=== PATIENT | male | born 2000 | race Hispanic/Latino ===

== ENCOUNTER 2024-02-29 16:00 | Emergency (ER) | payer BC ==
--- OUTSIDE RECORDS SUMMARY | 2024-02-29 16:02 | XMS REPORT | Continuity of Care Document ---
Author Name Unknown Address [address] [place] [address] [facility] thconnect Address [address] [place] [address] Care Team Providers Care Neurosurgical Nurse Practitioner Name Role Phone Pcp, Patient Does Not Have A Primary Care Physic jacky PRICE SCHAFER Attending Clinician Unavailable Doctor Unassigned, [place] Meadows Attending Clinician U Valdez Benz MD Attending Clinician [phone] UNKNOWN, ATTENDING Attending Clinician Unavailab le Unknown, Attending Attending Clinician Unavailab DOREEN Prado Attending Clinician Unavailable Doreen Laureano MD Attending Clinician [phone] MANDEEP COLLIER Attending Clinician Unavailable Mandeep Collier MD Attending Clinician [phone] Maria Kraft Attending Clinician [phone] PRICE SCHAFER Admitting Clinician Unavailable DOREEN LAUREANO Admitting Clinician Unavailable Payers Payer Name Policy Type Policy Number Effective Date Expirati on Date Source [facility] [id number] 2021 00:00:00 Problems Condition Name Condition Details Condition Category Status Onset Date Resolution Date Last Treatment Date Treating Clinician Comments Source Rectal bleeding Rectal bleeding Disease Active 11-17 00:00: 00 [facility] No known active problems No known active problems Disease [facility] Allergies, Adverse Reactions, Alerts Allergy Name Allergy Type Status Severity Reaction(s) Onset Date Inactive Date Treating Clinician Comments Source NO KNOWN ALLERGIE S Drug Class Active [facility] Social History Social Habit Start Date Stop Date Quantity Comments Source Sexual orientation [facility] Exposure to SARS-CoV-2 (event) 2022-06-09 00:00:00 2022-06-19 15:02:00 Not sure [facility] Tobacco use and exposure 2022-03-15 00:00:00 2022-03-15 00:00:00 Smokeless tobacco non-user [facility] History of Social function 2022-03-15 00:00:00 2022-03-15 00:00:00 [facility] Sex Assigned At 2000 00:00:00 2000 00:00:00 [facility] Smoking Status Start Date Stop Date Source Unknown if ever smoked [facility] Never smoked tobacco [facility] Medications Ordered Medication Name Filled Medication Name Start Date Stop Date Current Medication? Ordering Clinician Indication Dosage Frequency Signature (SIG) Comments Components Source peg-electro lyte soln 236-22.74-6 .74 -5.86 gram solution 11-17 00:00: 00 11-18 05:59 :00 No [id number] 4000mL Take 4,000 mL by mouth once now for 1 dose. [facility] iopamidol (ISOVUE 370-500 mL) injection 100 mL 11-09 06:30: 00 11-09 06:30 :00 No [id number] 100mL 100 mL, Intravenou s, ONCE, 1 dose, On Tue11/09/23 at 0030, Routine [facility] polyethylen e glycol 3350 17 gram powder 06-19 00:00: 00 Yes [id number] 1{packe t} Take 1 Packet by mouth in the morning. [facility] No known medications 03-15 18:44: 03 No [facility] Vital Signs Vital Name Observation Time Observation Value Comments S lexa Systolic blood pressure 2023-11-17 19:57:00 122 mm[Hg] [facility] Diastolic blood pressure 2023-11-17 19:57:00 57 mm[Hg] [facility] Heart rate 2023-11-17 19:57:00 81 /min [facility] Body temperature 2023-11-17 19:57:00 36.44 Corrie [facility] Body height 2023-11-17 19:57:[address] [facility] Body weight 2023-11-17 19:57:[address] [facility] BMI 2023-11-17 19:57:00 26.63 kg/m2 [facility] Oxygen saturation in Arterial blood by Pulse oximetry 2023-11-17 19:57:00 97 /min [facility] Heart rate 2023-11-09 06:21:00 62 /min [facility] Respiratory rate 2023-11-09 06:21:00 18 /min [facility] Oxygen saturation in Arterial blood by Pulse oximetry 2023-11-09 06:21:00 97 /min [facility] Systolic blood pressure 2023-11-09 04:54:00 133 mm[Hg] [facility] Diastolic blood pressure 2023-11-09 04:54:00 70 mm[Hg] [facility] Body temperature 2023-11-09 04:54:00 36.78 Corrie [facility] Body height 2023-11-09 04:54:[address] [facility] Body weight 2023-11-09 04:54:[address] [facility] BMI 2023-11-09 04:54:00 26.31 kg/m2 [facility] Systolic blood pressure 2022-06-19 20:03:00 128 mm[Hg] [facility] Diastolic blood pressure 2022-06-19 20:03:00 78 mm[Hg] [facility] Heart rate 2022-06-19 20:03:00 66 /min [facility] Body temperature 2022-06-19 20:03:00 36.78 Corrie [facility] Respiratory rate 2022-06-19 20:03:00 18 /min [facility] Body height 2022-06-19 20:03:[address] [facility] Body weight 2022-06-19 20:03:[address] [facility] BMI 2022-06-19 20:03:00 25.06 kg/m2 [facility] Oxygen saturation in Arterial blood by Pulse oximetry 2022-06-19 20:03:00 98 /min [facility] Systolic blood pressure 2022-03-15 22:48:00 131 mm[Hg] [facility] Diastolic blood pressure 2022-03-15 22:48:00 70 mm[Hg] [facility] Heart rate 2022-03-15 22:48:00 74 /min [facility] Body temperature 2022-03-15 22:48:00 37.22 Corrie [facility] Respiratory rate 2022-03-15 22:48:00 14 /min [facility] Body height 2022-03-15 22:48:[address] [facility] Body weight 2022-03-15 22:48:[address] [facility] BMI 2022-03-15 22:48:00 24.07 kg/m2 [facility] Oxygen saturation in Arterial blood by Pulse oximetry 2022-03-15 22:48:00 97 /min [facility] Procedures Procedure Date / Time Performed Performing Clinician Source COMP. METABOLIC PANEL (96468) 2023-11-09 05:26:00 Doreen Laureano [facility] CBC WITH DIFF 2023-11-09 05:26:[address] [facility] PROTHROMBIN TIME / INR 2023-11-09 05:26:00 Chase Laureano [facility] ACTIVATED PARTIAL THRMPLAS AJ 2023-11-09 05:26:00 Doreen Laureano [facility] CONSENT/REFUSAL FOR DIAGNOSIS AND TREATMENT 2023-11-09 04:40:23 Doctor Unassigned, [place] Meadows [facility] ASSIGNMENT OF BENEFITS 2022-03-15 22:37:46 Docto r Unassigned, [place] Meadows [facility] Encounters Start Date/Time End Date/Time Encounter Type Admission Type Attending Clinicians Care Facility Care Department Encounter ID Source 2024-01-27 14:07:01 Outpatient R PRICE SCHAFER [facility] [id number] [facility] 2024-01-24 00:00:00 2024-01-24 00:00:00 Patient Secure Msg Doctor Unassigned, Carolina Meadows [facility] [id number] 350.1.13.10 4.2.7.2.686 [id number] [facility] 2023-12-01 00:00:00 2023-12-01 00:00:00 Refill Valdez Zelaya [facility] 1.840.114 350.1.13.10 4.2.7.2.686 [id number] [facility] 2023-11-17 14:30:00 2023-11-17 15:07:42 Outpatient R UNKNOWN, ATTENDING [facility] [id number] [facility] 2023-11-17 14:30:00 2023-11-17 15:07:42 Office Visit Valdez Zelaya Unknown, Attending [facility] 1.840.114 350.1.13.10 4.2.7.2.686 [id number] [facility] 2023-11-08 22:56:00 2023-11-09 00:27:00 Emergency X DOREEN LAUREANO [facility] ERT [id number] [facility] 2023-11-08 22:56:00 2023-11-09 00:27:00 Emergency Doreen Laureano [facility] 1..840.114 350.1.13.10 4.2.7.2.686 [id number] [facility] 2022-06-19 15:00:00 2022-06-19 15:23:39 Outpatient R MANDEEP COLLIER [facility] [id number] [facility] 2022-06-19 15:00:00 2022-06-19 15:23:39 [facility] 1.2.840.114 350.1.13.10 4.2.7.2.686 [id number] [facility] 2022-03-15 19:40:00 2022-03-15 19:40:00 Urgent Care Mandeep Collier Brittany [facility] 1.2.840.114 350.1.13.10 4.2.7.2.686 [id number] [facility] 2022-03-15 19:40:00 2022-03-15 18:19:26 Outpatient R MANDEEP COLLIER [facility] [id number] [facility] 2022-03-15 00:00:00 2022-03-15 00:00:00 Orders Only Doctor Unassigned, [place] Meadows [facility] 1.2.840.114 350.1.13.10 4.2.7.2.686 [id number] [facility] Results Test Description Test Time Test Comments Results Result Co mments Source [facility] / [id number] 06:11:13* Test Item Value Reference Range Interpretation Comme nts PROTIME PATIENT (test code = 5964-2) 12.6 See_Comment [Automated [employer] ge] The system which generated this result transmitted reference range: 12.0 - 14.7 Seconds. The reference range was not used to interpret this result as normal/abnormal. INR (test code = 6301-6) 1.0 Normal INR <1.1; Warfarin Therapeutic range 2.0 to 3.0 or 2.5 to 3.5, depending upon the indications. Lab Interpretation (test code = 37733-6) Normal [facility] (38422)2023-11-09 06:03:35* Test Item Value Reference Range Interpretation Comme nts NA (test code = 8152812831) 138 mmol/L 135-145 K (test code = 9421079178) 3.7 mmol/L 3.5-5.0 CL (test code = 0741367076) 100 mmol/L 98-108 CO2 TOTAL (test code = 2746672516) 29 mmol/L 23-31 AGAP (test code = 0843530360) 9 2-16 BUN (test code = 5108791896) 20 mg/dL 7-23 GLUCOSE (test code = 0332331803) 86 mg/dL 70-110 CREATININE (test code = 2712177446) 0.95 mg/dL 0.60-1.25 TOTAL BILI (test code = 3581219395) 0.6 mg/dL 0.1-1.1 CALCIUM (test code = 1294131850) 9.7 mg/dL 8.6-10.6 T PROTEIN (test code = 3307459556) 8.4 g/dL 6.3-8.2 H ALBUMIN (test code = 2799664322) 4.9 g/dL 3.5-5.0 ALK PHOS (test code = 7226692354) 81 U/L 34-122 ALTv (test code = 1742-6) 76 U/L 5-50 H AST(SGOT) (test code = 0307145062) 54 U/L 13-40 H eGFR (test code = 98203-4) 116.8 mL/min/1.73m2 CKD-EPI eGFR (2020). Assuming creatinine has been stable day-to-day for at least three months, the eGFR indicates Category G1 (>= 90 mL/min/1.73 m2) Lab Interpretation (test code = 36951-9) Abnormal [facility] WITH IPDX3287-10-17 05:41:12* Test Item Value Reference Range Interpretation Comme nts WBC (test code = 6690-2) 7.64 See_Comment [Automated [employer] August] The system which generated this result transmitted reference range: 4.20 - 10.70 10*3/?L. The reference range was not used to interpret this result as normal/abnormal. RBC (test code = 789-8) 5.22 See_Comment [Automated [employer] August] The system which generated this result transmitted reference range: 4.26 - 5.52 10*6/?L. The reference range was not used to interpret this result as normal/abnormal. HGB (test code = 718-7) 15.0 g/dL 12.2-16.4 HCT (test code = 4544-3) 44.4 % 38.4-49.3 MCV (test code = 787-2) 85.1 fL 81.7-95.6 MCH (test code = 785-6) 28.7 pg 26.1-32.7 MCHC (test code = 786-4) 33.8 g/dL 31.2-35.0 RDW-SD (test code = 39041-3) 38.7 fL 38.5-51.6 RDW-CV (test code = 788-0) 12.4 % 12.1-15.4 PLT (test code = 777-3) 233 See_Comment [Automated [employer] ge] The system which generated this result transmitted reference range: 150 - 328 10*3/?L. The reference range was not used to interpret this result as normal/abnormal. MPV (test code = 34990-2) 10.1 fL 9.8-13.0 NRBC/100 WBC (test code = 8636649629) 0.0 See_Comment [Automated me ssage] The system which generated this result transmitted reference range: 0.0 - 10.0 /100 WBCs. The reference range was not used to interpret this result as normal/abnormal. NRBC x10^3 (test code = 2013814324) See_Comment [Automated me ssage] The system which generated this result transmitted reference range: 10*3/?L. The reference range was not used to interpret this result as normal/abnormal. GRAN MAT (NEUT) % (test code = 770-8) 51.9 % IMM GRAN % (test code = 4204796720) 0.30 % LYMPH % (test code = 736-9) 32.5 % MONO % (test code = 5905-5) 10.1 % EOS % (test code = 713-8) 4.7 % BASO % (test code = 706-2) 0.5 % GRAN MAT x10^3(ANC) (test code = 2426219417) 3.97 10*3/uL 1.99-6.95 IMM GRAN x10^3 (test code = 1020285283) 0.00-0.06 LYMPH x10^3 (test code = 731-0) 2.48 10*3/uL 1.09-3.23 MONO x10^3 (test code = 742-7) 0.77 10*3/uL 0.36-1.02 EOS x10^3 (test code = 711-2) 0.36 10*3/uL 0.06-0.53 BASO x10^3 (test code = 704-7) 0.04 10*3/uL 0.01-0.09 [facility] Notes Date/Time Note Provider Source 2023-11-17 14:30:00 S1pZuwTyFLeUGcO6ANvB uhpDMEawFkoMd2 pu8pRQ3QGcGck97e/8iAOWdN1hSzHc1310 -01-18T14:30:00Addended by: VALDEZ ZELAYA MD on: 11/17/2023 09:40 PMModules accepted: Orders 95810-3Svqgukbs NoekjruyEI5192-70-29B51:40:05Adden dum DocumentTXT1.2.840.595401.1.13.104 .2.7.2.667594|[id number] e for patient ernk95070-9HocoUVCZQRDCTISNomzsknw d C-CDA narrative text[address] Sf[id number] 37HAFOEEQUNOPMMLCKHNFKIH6028-47-72 T21:40:051.2.840.802676.1.72.3.15| 1.2.840.841606.1.13.104.2.7.2.7278 [id number] [facility] 2023-11-09 00:22:34 uVbq94Cu9SHv9F/Ij4PM DwdUgvplqawytf lwb1NacoQwwpEdqpiuuVJBSfPdSPJ70904 -11-09T00:22:34 Pt discharged home follow ERP eval and negative findings. Pt given all education and information regarding s/s of worsening condition and specialty follow up importance. Pt verbalized understanding. Alert and ambulatory to pov with mother. 94075-6Kdchfubje department YizjNL3425-40-65F15:23:24[facility] NoteTXT1.2.840.402619.1.13.104.2.7 .2.522142|[id number] for patient tcfp38525-8YbdgADVKVRTSSIUXldrfyef d C-CDA narrative [id number] A Paul RN[address] SyudLfhfshnelGltecyvaqUNTB87607800 68JBOTSFXYIITQAMFWWNVGOA7273-35-15 T00:23:241.2.840.784119.1.72.3.15| 1.2.840.124345.1.13.104.2.7.2.7278 [id number] Nader Rowe RN [facility] 2023-11-08 22:49:48 Vw0/XkGbtswYxIXTu93+ JODQx27X9wgFcM H+6qGZvKsQs61+7KSHHIrMiHfdB51M8690 -01-09T22:49:48 Pt arrives ambulatory to ED reporting that aprox 1830 he had a bowel movement and when he wiped there was blood on the paper, and noticed a small amt in the toilet. He denies constipation & diarrhea. 46174-8Zgesvfitk department Triage bnhhWE2414-60-70L07:54:25[facility] Triage noteTXT1.2.840.834224.1.13.104.2.7 .2.944725|[id number] for patient jlrg80103-2Xcvaypeli department NoteLNNARRATIVEFormatted C-CDA narrative [id number] L Williams RNUT[address] TrbjTthsmwgnrRrrkhqxosMUNF99853571 44TTKSQXIEXGRSPRUSZWKOUQ0993-31-08 T22:54:251.2.840.310767.1.72.3.15| 1.2.840.518390.1.13.104.2.7.2.7278 [id number] Mandeep Ivan RN [facility]"
[2024-02-29] MEDS ORDERED: TDAP (DIPHTH,PERTUSS(ACELL),TET VAC) 0.5 ML VIAL IMVAC ONE (16:16)
[2024-02-29] MEDS ORDERED: LIDOCAINE 1% MPF 5 ML VIAL ONE (16:16)
--- NOTE | 2024-02-29 17:12 | EDPHYS ---
Physician Documentation [facility] Name: Chidi Doran Jr Age: 23 yrs Sex: Male : 2000 Arrival Date: 02/29/2024 Time: 16:00 Bed 17 Private MD: ED Physician Esha Ho HPI: 02/28 16:35 This 23 yrs old Male presents to ER via Ambulatory with complaints of sb4 Laceration To Hand. 16:36 The patient has a laceration occurred at home, and there are no complicating factors. sb4 The injury was accidental. The laceration(s) is(are) located on the palmar aspect of distal phalanx of left middle finger. Onset: The symptoms/episode began/occurred just prior to arrival. Associated signs and symptoms: The patient has no apparent associated signs or symptoms. The patient has not experienced similar symptoms in the past. The patient has not recently seen a physician. Historical: - Allergies: 16:11 No Known Allergies; iw - Home Meds: 16:11 None [Active]; iw - PMHx: 16:11 None; iw - PSHx: 16:11 surgery for testicular torsion; iw - Immunization history:: Last tetanus immunization: unknown. - Infectious Disease History:: Denies. - Social history:: Smoking status: Patient denies any tobacco usage or history of. ROS: 16:36 Constitutional: Negative for fever, chills, and weight loss, sb4 16:36 Skin: Positive for laceration(s), 16:36 All other systems are negative, Exam: 16:36 Constitutional: This is a well developed, well nourished patient who is awake, alert, sb4 and in no acute distress. Head/Face: Normocephalic, atraumatic. Eyes: Extra-ocular motions intact. Periorbital areas with no swelling, redness, or edema. ENT: Mucous membranes moist. MS/ Extremity: Pulses equal, no cyanosis. Neurovascular intact. Full, normal range of motion. Neuro: Awake and alert, GCS 15, oriented to person, place, time, and situation. Motor strength 5/5 in all extremities. Sensory grossly intact. 16:36 Skin: injury, laceration(s), the wound is approximately 4 cm(s), with a depth of .2 cm(s), of the palmar aspect of distal phalanx of left middle finger, that can be described as clean, no foreign body, linear, with mild bleeding, Vital Signs: 16:10 BP 148 / 84; Pulse 72; Resp 16; Temp 98.8; Pulse Ox 98% on R/A; Weight 80.74 kg; Height iw 5 ft. 7 in. ; Pain 0/10; 16:10 Body Mass Index 27.88 (80.74 kg, 170.18 cm) iw 16:10 Pain Scale: Adult iw Laceration: 17:12 Wound Repair of 4cm ( 1.6in ) subcutaneous laceration to palmar aspect of distal sb4 phalanx of left middle finger. Distal neuro/vascular/tendon intact. Anesthesia: Local anesthetic administered with 4 mls of 1% lidocaine. Wound prep: Moderate cleansing with hibiclenz by me, Wound irrigation with saline by me, Wound explored, Copious irrigation. Skin closed with 5 5-0 Prolene using simple sutures and sterile technique. Dressed with bandaid. Patient tolerated well. MDM: 16:05 Patient medically screened. sb4 17:12 Data reviewed: vital signs, nurses notes, and as a result, I will discharge patient. sb4 Counseling: I had a detailed discussion with the patient and/or guardian regarding the historical points, exam findings, and any diagnostic results supporting the discharge/admit diagnosis, the need for outpatient follow up, for suture removal in 10 days, to return to the emergency department if symptoms worsen or persist or if there are any questions or concerns that arise at home. Administered Medications: 16:20 Drug: Boostrix Tdap IM 0.5 ml IM once; as a single dose {Note: 7CZ47 11/15/25 mb9 [employer] Route: IM; Site: right deltoid; 16:34 Follow up: Response: No adverse reaction mb9 17:04 Drug: Lidocaine Infiltration (1 %) 10 ml 5 ml Infiltration once; to bedside Volume: 5 mb9 ml; Route: Infiltration; Disposition: 19:24 STAFF ATTESTATION STATEMENT: I was immediately available onsite in the emergency sd2 department for consultation in the care of this patient. I did not see or examine this patient. Esha Ho MD. Disposition Summary: 02/29/24 17:11 Discharge Ordered Notes: Location: Home sb4 Problem: new sb4 Symptoms: have improved sb4 Condition: Stable sb4 Diagnosis - Laceration without foreign body of left middle finger without damage to nail sb4 Followup: sb4 - With: Private Physician - When: 10 - 14 days - Reason: Staple/Suture removal Discharge Instructions: - Laceration Care, Adult, Arms-rd-Jsrv sb4 - Discharge Summary Sheet mb9 Forms: - Patient Portal Instructions sb4 - Leadership Thank You Letter sb4 - Work release form mb9 Signatures: Marie Ivan, RN NICHOLAS iw Esha Ho MD MD sd2 Maggie Ramírez, PAMinorC PAMonse sb4 Janine Heller RN RN mb9
--- NOTE | 2024-02-29 17:12 | ER ---
Nurse's Notes [facility] Name: Chidi Doran Jr Age: 23 yrs Sex: Male : 2000 Arrival Date: 02/29/2024 Time: 16:00 Bed 17 Private MD: Diagnosis: Laceration without foreign body of left middle finger without damage to nail Presentation: 02/28 16:10 Chief complaint: Patient states: cut his left middle finger with kitchen knife, was iw trying to make a hole in his belt and it slipped. Coronavirus screen: At this time, the client does not indicate any symptoms associated with coronavirus-19. Ebola Screen: Patient negative for fever greater than or equal to 101.5 degrees Fahrenheit, and additional compatible Ebola Virus Disease symptoms Patient denies exposure to infectious person. Patient denies travel to an Ebola-affected area in the 21 days before illness onset. No symptoms or risks identified at this time. Complicating Factors: There are no complicating factors for this patient. Initial Sepsis Screen: Does the patient meet any 2 criteria? No. Patient's initial sepsis screen is negative. Does the patient have a suspected source of infection? No. Patient's initial sepsis screen is negative. Risk Assessment: Do you want to hurt yourself or someone else? Patient reports no desire to harm self or others. Onset of symptoms was February 29, 2024. 16:10 Method Of Arrival: Ambulatory iw 16:10 Acuity: ULISSES 4 iw Historical: - Allergies: 16:11 No Known Allergies; iw - Home Meds: 16:11 None [Active]; iw - PMHx: 16:11 None; iw - PSHx: 16:11 surgery for testicular torsion; iw - Immunization history:: Last tetanus immunization: unknown. - Infectious Disease History:: Denies. - Social history:: Smoking status: Patient denies any tobacco usage or history of. Screenin:21 [facility] ED Fall Risk Assessment (Adult) History of falling in the last 3 months, mb9 including since admission No falls in past 3 months (0 pts) Confusion or Disorientation No (0 pts) Intoxicated or Sedated No (0 pts) Impaired Gait No (0 pts) Mobility Assist Device Used No (0 pt) Altered Elimination No (0 pt) Score/Fall Risk Level 0 - 2 = Low Risk Oriented to surroundings, Maintained a safe environment, Educated pt \T\ family on fall prevention, incl call for assistance when getting out of bed, Provided non-skid footwear. Abuse screen: Denies threats or abuse. Nutritional screening: No deficits noted. Tuberculosis screening: No symptoms or risk factors identified. Assessment: 16:20 General: Appears in no apparent distress. Behavior is calm, cooperative. Pain: mb9 Complains of pain in left hand. Neuro: Allen Agitation-Sedation Scale (RASS): 0 - Alert and Calm Level of Consciousness is awake, alert, obeys commands, Oriented to person, place, time, situation, Appropriate for age. Cardiovascular: Patient's skin is warm and dry. Respiratory: Airway is patent Respiratory effort is even, unlabored, Respiratory pattern is regular, symmetrical. GI: No signs and/or symptoms were reported involving the gastrointestinal system. : No signs and/or symptoms were reported regarding the genitourinary system. EENT: No signs and/or symptoms were reported regarding the EENT system. Derm: Skin is pink, warm \T\ dry. Musculoskeletal: Range of motion: intact in all extremities. Injury Description: Laceration sustained to left hand is clean, 0.5 to 2.5 cm long, not bleeding, was sustained 1-2 hours ago. 17:14 Reassessment: No changes from previously documented assessment. Patient and/or family mb9 updated on plan of care and expected duration. Pain level reassessed. Patient is alert, oriented x 3, equal unlabored respirations, skin warm/dry/pink. Vital Signs: 16:10 BP 148 / 84; Pulse 72; Resp 16; Temp 98.8; Pulse Ox 98% on R/A; Weight 80.74 kg; Height iw 5 ft. 7 in. ; Pain 0/10; 16:10 Body Mass Index 27.88 (80.74 kg, 170.18 cm) iw 16:10 Pain Scale: Adult iw ED Course: 16:01 Patient arrived in ED. mg5 16:02 Maggie Ramírez PA-C is PHCP. sb4 16:02 Esha Ho MD is Attending Physician. sb4 16:11 Triage completed. iw 16:11 Arm band placed on. iw 16:14 Janine Heller RN is Primary Nurse. mb9 16:21 Placed in gown. Bed in low position. Call light in reach. Side rails up X 1. Provided mb9 Education on: press call light if needing anything. Client placed on continuous cardiac and pulse oximetry monitoring. NIBP monitoring applied. 17:07 Assist provider with laceration repair on palmar aspect of distal phalanx of left mb9 middle finger that was 2.5 cm. or less using sutures. Set up tray. Performed by Maggie Ramírez PA-C Dressed with 4X4s, Kerlix, Patient tolerated well. 17:07 Patient did not have IV access during this emergency room visit. mb9 Administered Medications: 16:20 Drug: Boostrix Tdap IM 0.5 ml IM once; as a single dose {Note: [id number] 11/15/25 mb9 [facility].} Route: IM; Site: right deltoid; 16:34 Follow up: Response: No adverse reaction mb9 17:04 Drug: Lidocaine Infiltration (1 %) 10 ml 5 ml Infiltration once; to bedside Volume: 5 mb9 ml; Route: Infiltration; Medication: 16:22 VIS not applicable for this client. mb9 Outcome: 17:11 Discharge ordered by . berta 17:14 Discharged to home ambulatory, mb9 17:14 Condition: stable 17:14 Discharge instructions given to patient, Instructed on discharge instructions, follow up and referral plans. Demonstrated understanding of instructions, follow-up care, 17:17 Patient left the ED. mb9 Signatures: Marie Ivan RN RN iw Brown, Sophia, PA-C PA-C sb4 Janine Heller RN RN mb9 Diana Spaulding mg5
[2024-02-29 17:46] VITALS: BP 148/84; TEMP 98.8; O2SAT 98
== END 2024-02-29 17:17 | disposition home or self-care (01) ==
LOC: ER 16:00
PROC: 0HQGXZZ Repair Left Hand Skin, External Approach (ICD-10-PCS; principal; 2024-02-29)
DX: S61.213A Laceration without foreign body of left middle finger without damage to nail, initial encounter (principal)
CPT/HCPCS: 12002; J2001; 96372; 99284